=== PATIENT | female | born 1990 | race Caucasian/White ===

== ENCOUNTER 2022-04-11 14:42 | Outpatient (CLI) | payer MEDICAID, SELFPAY ==
[2022-04-11 21:07] LABS: Chlamydia DNA Amplified* NOT DETECTED (No Detected); GC DNA Amplified* NOT DETECTED (No Detected)
== END 2022-04-11 14:43 | disposition home or self-care (01) ==
LOC: NFLDREF 14:45
PROVIDERS: PCP Family Medicine; Visit Provider Obstetrics & Gynecology
DX: Z01.419 Encounter for gynecological examination (general) (routine) without abnormal findings (principal); Z11.3 Encounter for screening for infections with a predominantly sexual mode of transmission
CPT/HCPCS: 87491; 87591

== ENCOUNTER 2025-01-04 09:22 | Outpatient (CLI) | payer MEDICAID, SELFPAY ==
[2025-01-04 15:06] LABS: PCR FLU A Negative PCR FLU A (Negative); PCR FLU B Negative PCR FLU B (Negative); SARS PCR* Negative SARS-CoV-2 (Negative)
== END 2025-01-04 09:23 | disposition home or self-care (01) ==
LOC: FBOREF 09:23
PROVIDERS: PCP Family Medicine; Visit Provider Family Medicine
DX: J02.9 Acute pharyngitis, unspecified (principal)
CPT/HCPCS: 87631

== ENCOUNTER 2025-04-20 11:07 | Outpatient (CLI) | payer MEDICAID, SELFPAY | END 2025-04-20 11:08 | disposition home or self-care (01) | PROVIDERS: PCP Family Medicine; Visit Provider Physician Assistant | DX: L68.0 Hirsutism (principal); L70.9 Acne, unspecified; N92.6 Irregular menstruation, unspecified | CPT/HCPCS: 80061; 82947; 83498; 83525; 84146; 84270; 84402; 84403; 84443 ==

== ENCOUNTER 2025-04-27 10:28 | Outpatient (CLI) | payer MEDICAID, SELFPAY ==
--- NOTE | 2025-04-27 10:45 | CRLHL7_ITS ---
For Patients: As a result of the Century Cures Act, medical imaging exams and procedure reports are released immediately into your electronic medical record. You may view this report before your referring provider. If you have questions, please contact your health care provider. INDICATION: Irregular period/no period with IUD COMPARISON: None. TECHNIQUE: 2D perdomo-scale and color Doppler images were acquired of the pelvis using a transabdominal and transvaginal approach. Transvaginal imaging performed to better visualize the endometrial stripe and ovaries. FINDINGS: Sonographic images demonstrate a normal size and smooth outer contour of the uterus. Uterus measures 8.0 cm in length by 3.2 cm in AP diameter by 3.8 cm in transverse dimension. The myometrium has a normal uniform echotexture. The endometrial lining appears normal and measures 4.1 mm in composite thickness. IUD is present in good position within the endometrial canal. The right ovary measures 2.5 x 1.9 x 2.5 cm in size and the left ovary measures 2.4 x 1.8 x 2.3 cm. The ovaries demonstrate normal arterial and venous blood flow on color Doppler analysis. There are no suspicious fluid collections within the cul-de-sac. IMPRESSION: Normal position of the IUD. Endometrial thickness 4 millimeters. Dictated by Zuhair Segura MD @ 04/27/2025 11:42:47 AM (Electronically Signed)
== END 2025-04-27 10:29 | disposition home or self-care (01) ==
LOC: US 10:29
PROVIDERS: PCP Family Medicine; Visit Provider Physician Assistant
DX: R10.20 Pelvic and perineal pain unspecified side (principal); R93.89 Abnormal findings on diagnostic imaging of other specified body structures
CPT/HCPCS: 76830; 76856